=== PATIENT | female | born 1940 | race Caucasian/White ===

== ENCOUNTER 2019-07-02 15:10 | Emergency (ER) | payer MEDICARE, OTHER ==
[~2019-07-02] VITALS: Ht 170.2 cm; Wt 74.8 kg
[~2019-07-02 15:10] MED LIST: CIPR500 PO; Carafate1 GM/10 ML PO; Flagyl250 MG PO; HYDACE25S PR; HYDHCL25 PO; LEVSOD100 PO; LEVSOD75 PO; METO25ER PO; OMEPRAZOLE MAGN20 MG PO; TRIA80TC TOP
[2019-07-02 16:00] LABS: BASOPHILS ABSOLUTE AUTO 0.08 K/mm3 (0.00-0.23); BASOPHILS PERCENT AUTO 1 % (0-2); EOSINOPHILS ABSOLUTE AUTO 0.08 K/mm3 (0.00-0.68); EOSINOPHILS PERCENT AUTO 1 % (0-6); Hematocrit 34.3 % (33.0-51.0); Hemoglobin 11.5 g/dL (11.5-16.0); IMMATURE GRAN ABSOLUTE AUTO 0.02 K/mm3 (0.00-0.10); IMMATURE GRAN PERCENT AUTO 0 % (0-1); LYMPHOCYTES ABSOLUTE AUTO 1.79 K/mm3 (0.84-5.20); LYMPHOCYTES PERCENT AUTO 26 % (21-46); MONOCYTES ABSOLUTE AUTO 0.73 K/mm3 (0.16-1.47); MONOCYTES PERCENT AUTO 11 % (4-13); Mean Corpuscular HGB Conc 33.5 g/dL (31.5-36.5); Mean Corpuscular Volume 93 fL (80-100); Mean Platelet Volume 9.5 fL (9.1-12.4); NEUTROPHILS ABSOLUTE AUTO 4.17 K/mm3 (1.96-9.15); NEUTROPHILS PERCENT AUTO 61 % (41-73); Platelet Count 231 K/mm3 (150-400); RDW Coefficient Variation 12.6 % (11.7-14.2); RDW Standard Deviation 42.9 fL (35.1-46.3); Red Blood Cell Count 3.71 M/mm3 (3.80-5.20); White Blood Cell Count 6.87 K/mm3 (4.00-11.30)
[2019-07-02 16:20] LABS: Albumin, Blood 3.9 g/dL (3.4-5.0); Bilirubin, Total 0.6 mg/dL (0.1-1.0); Bun/Creatinine Ratio 12.8 (12.0-20.0); Calcium, Blood 8.7 mg/dL (8.5-10.1); Creatinine, Blood 1.17 mg/dL (0.40-1.00); Globulin, Blood 3.8 g/dL (2.2-4.0); Potassium, Blood 3.7 mmol/L (3.5-5.5); Total Protein, Blood 7.7 g/dL (6.4-8.2)
[2019-07-02] MEDS ORDERED: ALBU90OI INH (17:16)
[2019-07-02] MEDS ORDERED: BENZ100A PO (17:16)
== END 2019-07-02 17:55 | disposition home or self-care (01) ==
LOC: ER 15:10
PROVIDERS: Nurse Practitioner
DX: R51 Headache (principal); R05 Cough; E03.9 Hypothyroidism, unspecified; Z79.899 Other long term (current) drug therapy
CPT/HCPCS: 36415; 70450; 71046; 80053; 85025; 99284-25

== ENCOUNTER 2020-06-11 15:04 | Day surgery (SDC) | payer MEDICARE, OTHER ==
[~2020-06-11 15:04] MED LIST changes: +ALBU90OI INH; +BENZ100A PO
[2020-06-11] MEDS ORDERED: VITAMIN D31000 UNI1 PO (16:32)
[2020-06-11] MEDS ORDERED: ALLEGRA ALLERG180 MG PO (16:33)
[2020-06-11] MEDS ORDERED: FISH OIL 1,2001 EAC7 PO (16:33)
[2020-06-11] MEDS ORDERED: MEMA5TAB PO (16:34)
[2020-06-11] MEDS ORDERED: FLUT.05NI (16:34)
[2020-06-11] MEDS ORDERED: MULVITA PO (16:35)
[2020-06-11 18:05] LABS: BASOPHILS ABSOLUTE AUTO 0.06 K/mm3 (0.00-0.23); BASOPHILS PERCENT AUTO 1 % (0-2); EOSINOPHILS ABSOLUTE AUTO 0.13 K/mm3 (0.00-0.68); EOSINOPHILS PERCENT AUTO 2 % (0-6); Hematocrit 22.8 % (33.0-51.0); Hemoglobin 7.2 g/dL (11.5-16.0); IMMATURE GRAN ABSOLUTE AUTO 0.01 K/mm3 (0.00-0.10); IMMATURE GRAN PERCENT AUTO 0 % (0-1); LYMPHOCYTES ABSOLUTE AUTO 1.54 K/mm3 (0.84-5.20); LYMPHOCYTES PERCENT AUTO 26 % (21-46); MONOCYTES ABSOLUTE AUTO 0.77 K/mm3 (0.16-1.47); MONOCYTES PERCENT AUTO 13 % (4-13); Mean Corpuscular HGB 29.8 pg (26.0-34.0); Mean Corpuscular HGB Conc 31.6 g/dL (31.5-36.5); Mean Corpuscular Volume 94 fL (80-100); Mean Platelet Volume 9.2 fL (9.1-12.4); NEUTROPHILS ABSOLUTE AUTO 3.47 K/mm3 (1.96-9.15); NEUTROPHILS PERCENT AUTO 58 % (41-73); Platelet Count 285 K/mm3 (150-400); RDW Coefficient Variation 12.7 % (11.7-14.2); RDW Standard Deviation 43.8 fL (35.1-46.3); Red Blood Cell Count 2.42 M/mm3 (3.80-5.20); White Blood Cell Count 5.98 K/mm3 (4.00-11.30)
--- NOTE | 2020-06-11 18:11 | NUR ---
LABS DRAWN AFTER IV HYDRATION COMPLETED. LABS DRAWN FROM IV SALINE LOCK AFTER FIRST 5 ML BLOOD WASTED.
[2020-06-11 18:29] LABS: Albumin, Blood 2.7 g/dL (3.4-5.0); Anion Gap 5 mmol/L (6-16); Blood Urea Nitrogen 24 mg/dL (8-24); Bun/Creatinine Ratio 14.1 (12.0-20.0); CO2, Blood 26 mmol/L (21-32); Calcium, Blood 8.2 mg/dL (8.5-10.1); Chloride, Blood 109 mmol/L (98-108); Glomerular Filtration Rate 31 (60-); Glucose, Blood 93 mg/dL (70-99); Phosphorus, Blood 2.5 mg/dL (2.5-4.9); Potassium, Blood 4.1 mmol/L (3.5-5.5); Sodium, Blood 140 mmol/L (136-145)
== END 2020-06-11 18:00 | disposition home or self-care (01) ==
LOC: ATC 15:04
PROVIDERS: Internal Medicine
DX: N17.9 Acute kidney failure, unspecified (principal); I12.9 Hypertensive chronic kidney disease with stage 1 through stage 4 chronic kidney disease, or unspecified chronic kidney disease; N18.30 Chronic kidney disease, stage 3 unspecified; E03.9 Hypothyroidism, unspecified; E78.5 Hyperlipidemia, unspecified; R00.2 Palpitations; D64.9 Anemia, unspecified; H91.90 Unspecified hearing loss, unspecified ear; M48.00 Spinal stenosis, site unspecified; Z90.711 Acquired absence of uterus with remaining cervical stump
CPT/HCPCS: 80069; 82607; 82746; 85025; 96360; 96361; J7030